=== PATIENT | female | born 1975 | race Caucasian/White ===

== ENCOUNTER 2024-10-08 06:16 | Outpatient (CLI) | payer OTHER ==
[~2024-10-08 06:16] MED LIST: CEFUROXIME500 MG PO; EAR WAX DROPS15 M1 OT; FLONASE16 G1 NS; FLONASE16 GM NASAL; ZYRTEC10 MG PO
[2024-10-08 08:02] LABS: PH,URINE 6.5 (5.0-8.0); URINE APPEARANCE Clear; URINE BILIRRUBIN Negative (NEGATIVE); URINE BLOOD Negative; URINE COLOR Yellow; URINE GLUCOSE Negative (NEGATIVE); URINE KETONE Negative (NEGATIVE); URINE LEUKOCYTE Negative; URINE NITRATE Negative; URINE PROTEIN Negative (NEGATIVE); URINE UROBILINOGEN 0.2 E.U./dl
[2024-10-08 08:05] LABS: URINE BACTERIA 417.3 uL (0.0-1933); URINE RBC 2.5 uL (0.0-20.8)
[2024-10-08 08:15] LABS: HEMOGLOBIN 12.6 g/dL (12.0-15.00); MEAN CELL VOLUME 85.8 fL (80.00-100.00); MEAN CORPUSCULAR HEMOGLOBIN 29.3 pg (27.00-32.0); MEAN CORPUSCULAR HGB CONC 34.1 g/dl (32.0-36.0); PLATELET COUNT 389 K/uL (150-450); RED BLOOD COUNT 4.31 M/uL (4.00-6.00); RED CELL DISTRIBUTION WIDTH 13.6 % (11.5-14.5)
[2024-10-08 08:56] LABS: ALBUMIN 3.5 gm/dL (3.4-5.0); BILIRUBIN TOTAL 0.32 mg/dL (0.3-1.2); CHOL HDL RATIO 3.8 (0-5.0); CREATININE SERUM 0.79 mg/dL (0.55-1.02); GFR 77.03; GLOBULINA 3.4 G/DL (2.4-3.5); POTASSIUM 4.09 mEq/L (3.5-5.1); TOTAL PROTEIN 6.9 gm/dL (6.4-8.2)
[2024-10-08 09:16] LABS: TSH 2.08 uIU/mL (0.358-3.74)
[2024-10-09 09:05] LABS: FOLLICLE STIMULATING HORMONE 8.1 mIU/mL (.)
== END 2024-10-08 06:22 | disposition home or self-care (01) ==
LOC: LAB 06:16
DX: D64.9 Anemia, unspecified (principal); E78.5 Hyperlipidemia, unspecified; E34.9 Endocrine disorder, unspecified; N95.1 Menopausal and female climacteric states; E23.6 Other disorders of pituitary gland; R19.00 Intra-abdominal and pelvic swelling, mass and lump, unspecified site; N39.0 Urinary tract infection, site not specified

== ENCOUNTER 2024-10-15 13:40 | Outpatient (CLI) | payer OTHER | END 2024-10-15 13:50 | disposition home or self-care (01) | LOC: MAMO-SONO 13:40 | PROVIDERS: ATTEND Obstetrics & Gynecology | DX: N63.10 Unspecified lump in the right breast, unspecified quadrant (principal); N63.20 Unspecified lump in the left breast, unspecified quadrant ==

== ENCOUNTER 2024-12-27 14:10 | Outpatient (CLI) | payer OTHER | END 2024-12-27 14:17 | disposition home or self-care (01) | LOC: MAMO-SONO 14:10 | PROVIDERS: ATTEND Obstetrics & Gynecology | DX: N63.10 Unspecified lump in the right breast, unspecified quadrant (principal); N63.20 Unspecified lump in the left breast, unspecified quadrant ==